=== PATIENT | male | born 1940 | race Hispanic/Latino ===

== ENCOUNTER → 2019-11-16 | Day surgery (SDC) | payer MEDICARE, OTHER ==
[~2019-11-16] MED LIST: AMLODIPINE BESYL5 MG PO; ASPIR 8181 MG PO; ATORVASTATIN CA20 MG PO; CLONIDINE HCL0.1 MG PO; DIOVAN80 MG PO; ECOTRIN325 MG PO; ETOMIDATE 2 MG/ML 10 ML INJ IV ONE; IOPAMIDOL 300MG/ML 50ML INFUS..BTL IV ONE; LEVAQUIN500 MG PO; LIDOCAINE HCL 2% JELLY 5 ML TUBE ONE; LIDOCAINE HCL 2% LOCAL INJ 5 ML SDV VIAL INJ ONE; LIPITOR40 MG PO; LOVENOX60 MG/0.6 SC; METOPROLOL SUCC25 MG PO; METOPROLOL TAR100 MG PO; NITROGLYCERIN0.4 MG SL; NITROGLYCERIN1 EAC1; NORCO 5-325 TA1 EACH PO; PERSANTINE50 MG PO; PRILOSEC20 MG PO; PROPOFOL IV EMULSION 10 MG/ML 20 ML VIAL ONE; RANEXA500 MG PO; ROCURONIUM BROMIDE 10 MG/ML 5ML VIAL IV ONE; SECTRAL200 MG PO; SEVOFLURANE INHAL SOLN 250 ML PEN BTL ONE; SUCCINYLCHOLINE CHLORIDE 20 MG/ML 10ML VIAL ONE; VOLTAREN GEL TP; WARFARIN SODIU2.5 MG PO
[2019-11-16 07:13] LABS: BASOPHILS % 0.5 % (0.0-1.0); EOSINOPHILS # (AUTO) 0.1 (0.0-0.4); EOSINOPHILS % 1.1 % (0.0-6.0); HEMATOCRIT 43.8 % (38.2-49.6); HEMOGLOBIN 13.9 g/dL (14.0-18.0); LYMPHOCYTES # (AUTO) 1.7 (1.0-3.2); LYMPHOCYTES % 31.3 % (18.0-39.1); MEAN CORPUSCULAR HGB CONC 31.7 g/dL (31-35); MEAN CORPUSCULAR VOLUME 97.8 fL (81-99); MONOCYTES # (AUTO) 0.7 (0.2-0.8); MONOCYTES % 12.1 % (4.4-11.3); NEUTROPHILS % 54.8 % (38.7-80.0); PLATELET COUNT 211 x10e3/uL (140-360); RED BLOOD COUNT 4.48 x10e6/uL (4.3-5.7); RED CELL DISTRIBUTION WIDTH 13.1 % (11.7-14.4)
--- NOTE | 2019-11-16 07:20 | NUR ---
SPIRITUAL CARE - Pre-Surgery Assessment: Pt in bed. Pt's at bedside. Pt reported supportive attention from family and friends. Intervention: Information Assistant provided pastoral presence, hospitality, sympathetic listening, and prayer. Acquainted pt with availability of automatic spreader operator while hospitalized. Outcome: Pt expressed appreciation for visit. No need for follow up indicated at this time. [facility] Spiritual Care Department O: [phone]
[2019-11-16 07:24] LABS: INR 0.98; PROTHROMBIN TIME 13.6 seconds (11.9-14.5)
[2019-11-16 07:25] LABS: PARTIAL THROMBOPLASTIN TIME 28.6 seconds (23.8-35.5)
[2019-11-16 07:34] LABS: ALANINE AMINOTRANSFERASE 21 IU/L (0-55); ALBUMIN 3.6 g/dL (3.5-5.0); ALKALINE PHOSPHATASE 115 IU/L (40-150); ANION GAP 11.4 mmol/L (8-16); BLOOD UREA NITROGEN 12 mg/dL (7-26); BUN/CREATININE RATIO 12 (6-25); CALCIUM 9.4 mg/dL (8.4-10.2); CARBON DIOXIDE 27 mmol/L (22-29); CHLORIDE 99 mmol/L (98-107); EST GLOMERULAR FILTRATION RATE > 60 ML/MIN (60-); GLUCOSE 93 mg/dL (74-118); POTASSIUM 4.4 mmol/L (3.5-5.1); SODIUM 133 mmol/L (136-145)
--- NOTE | 2019-11-16 09:07 | Diagnostic Imaging Report ---
PROCEDURE: Fluoroscopic guidance for ERCP COMPARISON: None. Radiation Details: Fluoroscopy time: 43 seconds Cumulative dose: 30.9 mGy FINDINGS/IMPRESSION: Fluoroscopic guidance was provided for ERCP during which contrast cholangiogram and common bile duct balloon sweep was performed. The radiologist was not present for this exam. Please refer to the endoscopic report for detailed findings. Signed by: Gladys Kumar MD on 11/16/2019 9:03 AM
[2019-11-16 09:15] VITALS: BP 146/87
== END | disposition home or self-care (01) ==
LOC: ENDO 06:08
PROVIDERS: ATTEND Internal Medicine Gastroenterology
DX: K80.50 Calculus of bile duct without cholangitis or cholecystitis without obstruction (principal); K57.10 Diverticulosis of small intestine without perforation or abscess without bleeding; Z90.49 Acquired absence of other specified parts of digestive tract; Z45.89 Encounter for adjustment and management of other implanted devices; Z86.010 Personal history of colon polyps; K74.60 Unspecified cirrhosis of liver; E66.3 Overweight; J44.9 Chronic obstructive pulmonary disease, unspecified; J84.10 Pulmonary fibrosis, unspecified; I10 Essential (primary) hypertension; I48.91 Unspecified atrial fibrillation; Z88.6 Allergy status to analgesic agent; Z88.1 Allergy status to other antibiotic agents; Z88.0 Allergy status to penicillin; Z01.812 Encounter for preprocedural laboratory examination; Z11.59 Encounter for screening for other viral diseases; Z68.29 Body mass index [BMI] 29.0-29.9, adult; Z95.0 Presence of cardiac pacemaker; Z95.5 Presence of coronary angioplasty implant and graft; Z95.1 Presence of aortocoronary bypass graft; Z87.891 Personal history of nicotine dependence
CPT/HCPCS: 36415; 43264; 43275; 74328; 80053; 85025; 85610; 85730; 87635; Q9967; 43260; J0330; J2001; U0002